=== PATIENT | female | born 1950 | race Caucasian/White ===

== ENCOUNTER 2018-05-02 05:18 | Day surgery (SDC) | payer MEDICARE, OTHER ==
[2018-04-30 15:31] LABS: BASOPHILS # (AUTO) 0.1 X10'3 (0-0.2); EOSINOPHILS # (AUTO) 0.1 X10'3 (0-0.9); EOSINOPHILS % (AUTO) 1.8 % (0-6); LYMPHOCYTES # (AUTO) 1.5 X10'3 (1.1-4.8); LYMPHOCYTES % (AUTO) 22.4 % (21-51); MEAN CORPUSCULAR HEMOGLOBIN 30.1 PG (27.0-31.0); MEAN CORPUSCULAR HGB CONC 33.2 % (33.0-36.5); MEAN CORPUSCULAR VOLUME 90.7 FL (78-98); MEAN PLATELET VOLUME 7.1 FL (7.4-10.4); MONOCYTES # (AUTO) 0.2 X10'3 (0-0.9); MONOCYTES % (AUTO) 3.6 % (2-12); NEUTROPHILS # (AUTO) 4.7 X10'3 (1.8-7.7); NEUTROPHILS % (AUTO) 71.2 % (42-75); PRE OP HEMATOCRIT 40.3 % (35.0-45.0); PRE OP HEMOGLOBIN 13.4 g/dL (12.0-16.0); PRE OP PLATELET COUNT 308 X10'3 (140-440); RED BLOOD COUNT 4.44 X10'6 (4.20-5.60); RED CELL DISTRIBUTION WIDTH 13.5 % (11.5-14.5)
[2018-04-30 15:35] LABS: PRE OP PROTIME 10.1 SECONDS (9.0-12.0)
[2018-04-30 15:42] LABS: ALBUMIN 3.7 G/DL (3.4-5.0); ALBUMIN/GLOBULIN RATIO 1.1 (1.1-1.5); ALKALINE PHOSPHATASE 114 IU/L (46-116); BLOOD UREA NITROGEN 23 MG/DL (7-18); BUN/CREATININE RATIO 25.8 (6.6-38.0); CALCIUM 9.9 MG/DL (8.5-10.1); CHLORIDE 106 MMOL/L (99-107); CREATININE 0.89 MG/DL (0.40-0.90); PRE OP ALT 27 U/L (30-65); PRE OP ANION GAP 9 (8-16); PRE OP AST 12 U/L (10-37); PRE OP BILIRUB, TOTAL 0.4 MG/DL (0.0-1.0); PRE OP GLUCOSE 94 MG/DL (70-104); PRE OP POTASSIUM 3.9 MMOL/L (3.4-5.1); PRE OP SODIUM 139 MMOL/L (135-145); TOTAL CARBON DIOXIDE 24.2 MMOL/L (24-32); TOTAL PROTEIN 7.1 G/DL (6.4-8.2); eGFR 63 ML/MIN
[2018-05-02] VITALS (26 sets, daily range): BP systolic 117–175; BP diastolic 51–92
[~2018-05-02] VITALS: Ht 160 cm; Wt 67.6 kg
[~2018-05-02 05:18] MED LIST: BISA-155 PO; EZET10TA14 PO; HYDR-3965 PO; LACT1CAP65 PO; MULT-1133 PO; POT INH; SENN-25 PO; TRAM50TA2 PO
[2018-05-02] MEDS ORDERED: gentamicin inj 275 MG in normal saline 100ml IV soln 93.125 ML IV ONE (05:30)
[2018-05-02] MEDS ORDERED: clindamycin-Cleocin 900mg/D5W 50 ML IV ONE (05:30)
[2018-05-02] MEDS ORDERED: famotidine 20mg tablet PO ONE (05:30)
[2018-05-02] MEDS ORDERED: LIDOcaine 1% (10mg/ml) 2ml vial ONE (05:43)
[2018-05-02] MEDS: ringers solution, lacted 1,000 ML IV SCH ×5 (06:15→17:06)
[2018-05-02] MEDS ORDERED: clindamycin phosphate 40gm vag cream ONE (06:50)
[2018-05-02] MEDS ORDERED: LIDOcaine 0.5% W/epiNEPHrine 1:200,000 50ml vial IJ ONE (06:50)
[2018-05-02] MEDS ORDERED: BUPIVAcaine/PF 2.5mg/ml (0.25%) 10ml vial ONE (06:51)
[2018-05-02] MEDS ORDERED: epiNEPHrine 1 mg/ml inj ONE (06:51)
[2018-05-02] MEDS ORDERED: neomy sulf/polymyxin B sulf. GU irrigation 1ml amp IR ONE (06:51)
[2018-05-02] MEDS ORDERED: sevoflurane 250ml liquid IH ONE (07:12)
[2018-05-02] MEDS ORDERED: acetaminophen 1000 MG/100ml vial IV ONE (07:12)
[2018-05-02] MEDS ORDERED: fentaNYL /PF 50mcg/ml 5ml ampule ONE (07:16)
[2018-05-02] MEDS ORDERED: midazolam 2 mg/2 ml injection ONE (07:16)
[2018-05-02] MEDS ORDERED: rocuronium 10mg/ml inj IV ONE (07:17)
[2018-05-02] MEDS ORDERED: LIDOcaine 2% (20mg/ml) 5ml vial ONE (07:17)
[2018-05-02] MEDS ORDERED: propofol inj 20 ML IV ONE (07:17)
[2018-05-02] MEDS ORDERED: ondansetron/PF 4mg/2ml inj IV PRN (08:15)
[2018-05-02] MEDS ORDERED: meperidine/PF 25mg/ml syringe IV PRN ×2 (08:15)
[2018-05-02] MEDS ORDERED: morphine 4 MG/ML inj SYRINge IV PRN ×3 (08:15→16:00)
[2018-05-02] MEDS ORDERED: ringers solution, lacted 1,000 ML IV SCH (08:15)
[2018-05-02] MEDS ORDERED: proCHLORperazine 10 MG/2 ml inj IV PRN (08:15)
[2018-05-02] MEDS ORDERED: dexamethasone sod phosphate 4mg/ml inj. ONE (08:21)
[2018-05-02] MEDS ORDERED: neostigmine methylsulfate 1 MG/ML 10ml vial ONE (08:21)
[2018-05-02] MEDS ORDERED: glycopyrrolate 0.2mg/ml inj ONE (08:21)
[2018-05-02] MEDS ORDERED: ondansetron/PF 4mg/2ml inj ONE (08:21)
[2018-05-02] MEDS ORDERED: meperidine/PF 50mg/ml syringe ONE (09:49)
[2018-05-02] MEDS ORDERED: sennosides 8.6mg tablet PO PRN (10:50)
[2018-05-02] MEDS ORDERED: traMADol 50MG tablet PO PRN (10:50)
[2018-05-02] MEDS: meperidine/PF 25mg/ml syringe IV PRN ×3 (11:46→14:14)
[2018-05-02] MEDS: ondansetron/PF 4mg/2ml inj IV PRN ×2 (14:12→20:27)
[2018-05-02] MEDS: proCHLORperazine 10 MG/2 ml inj IV PRN ×2 (16:21→22:49)
[2018-05-02] MEDS: morphine 4 MG/ML inj SYRINge IV PRN ×2 (16:22→20:27)
[2018-05-02] MEDS: docusate sod 250mg capsule PO SCH (19:20)
[2018-05-02] MEDS: ezetimibe 10mg tablet PO SCH (20:27)
[2018-05-02] MEDS: bisacodyl 5mg tablet.DR PO SCH (20:36)
[2018-05-02] MEDS ORDERED: HYDROcodone/acetaminophen 5mg/325mg tablet PO SCH (21:00)
[2018-05-02] MEDS: HYDROcodone/acetaminophen 10/325mg tab PO PRN (22:49)
[2018-05-03] VITALS: BP_SYST 145; BP_SYST 171; BP_DIAS 45; BP_DIAS 49
[2018-05-03] MEDS: ringers solution, lacted 1,000 ML IV SCH ×2 (02:09→14:38)
[2018-05-03] MEDS: morphine 4 MG/ML inj SYRINge IV PRN ×2 (04:51→09:43)
[2018-05-03 07:30] VITALS: BP 142/45
[2018-05-03] MEDS: lactobacillus rhamnosus 10,000 MMU CELLS/CAPSULE PO SCH (08:24)
[2018-05-03] MEDS: docusate sod 250mg capsule PO SCH ×2 (08:24→19:47)
[2018-05-03] MEDS: multivitamins, therapeutics tablet PO SCH (08:24)
[2018-05-03 09:42] LABS: BASOPHILS % (AUTO) 0.1 % (0-1); EOSINOPHILS # (AUTO) 0.2 X10'3 (0-0.9); EOSINOPHILS % (AUTO) 1.1 % (0-6); HEMATOCRIT 39.2 % (35.0-45.0); HEMOGLOBIN 13.7 g/dl (12.0-16.0); LYMPHOCYTES # (AUTO) 1.3 X10'3 (1.1-4.8); LYMPHOCYTES % (AUTO) 8.9 % (21-51); MEAN CORPUSCULAR HEMOGLOBIN 31.2 PG (27.0-31.0); MEAN CORPUSCULAR HGB CONC 34.9 % (33.0-36.5); MEAN CORPUSCULAR VOLUME 89.6 FL (78-98); MEAN PLATELET VOLUME 7.5 FL (7.4-10.4); MONOCYTES # (AUTO) 0.9 X10'3 (0-0.9); MONOCYTES % (AUTO) 6.1 % (2-12); NEUTROPHILS # (AUTO) 11.8 X10'3 (1.8-7.7); NEUTROPHILS % (AUTO) 83.8 % (42-75); PLATELET COUNT 323 X10'3 (140-440); RED BLOOD COUNT 4.38 X10'6 (4.20-5.60); RED CELL DISTRIBUTION WIDTH 14.4 % (11.5-14.5)
[2018-05-03 12:00] VITALS: BP 174/60
[2018-05-03] MEDS: HYDROcodone/acetaminophen 10/325mg tab PO PRN ×2 (14:42→22:45)
[2018-05-03 18:00] VITALS: BP 163/56
[2018-05-03] MEDS: bisacodyl 5mg tablet.DR PO SCH (20:48)
[2018-05-03] MEDS: ezetimibe 10mg tablet PO SCH (20:48)
[2018-05-03] MEDS: ondansetron/PF 4mg/2ml inj IV PRN (21:50)
[2018-05-04] VITALS: BP 154/65
[2018-05-04] MEDS: ringers solution, lacted 1,000 ML IV SCH ×2 (04:00→08:40)
[2018-05-04] MEDS: HYDROcodone/acetaminophen 10/325mg tab PO PRN ×2 (04:16→10:43)
[2018-05-04 08:00] VITALS: BP 155/57
[2018-05-04] MEDS: multivitamins, therapeutics tablet PO SCH (08:00)
[2018-05-04] MEDS: lactobacillus rhamnosus 10,000 MMU CELLS/CAPSULE PO SCH (08:00)
[2018-05-04] MEDS: docusate sod 250mg capsule PO SCH (08:00)
== END 2018-05-04 13:31 | disposition home or self-care (01) ==
LOC: PAS 05:18 → SUR 3N 13:29 → PAS 05-04 13:31
PROVIDERS: ATTEND Specialist
DX: N72 Inflammatory disease of cervix uteri (principal); N81.2 Incomplete uterovaginal prolapse; N80.0 Endometriosis of uterus; N81.4 Uterovaginal prolapse, unspecified; N81.6 Rectocele; M81.0 Age-related osteoporosis without current pathological fracture; F17.210 Nicotine dependence, cigarettes, uncomplicated; Z90.49 Acquired absence of other specified parts of digestive tract; G89.29 Other chronic pain; Z88.5 Allergy status to narcotic agent; Z88.6 Allergy status to analgesic agent; Z85.3 Personal history of malignant neoplasm of breast; Z98.51 Tubal ligation status; Z79.891 Long term (current) use of opiate analgesic; Z88.0 Allergy status to penicillin; Z88.4 Allergy status to anesthetic agent; Z79.899 Other long term (current) drug therapy; Z98.890 Other specified postprocedural states; Z88.8 Allergy status to other drugs, medicaments and biological substances; Z80.1 Family history of malignant neoplasm of trachea, bronchus and lung
CPT/HCPCS: 36415; 57220; 57260; 58262; 80053; 85025; 85610; 85730; 86885; 86900; 86901; 87070; 93005; A4344; A6253; A6402; J0131; J0171; J0780; J1100; J1580; J2001; J2175; J2250; J2270; J2405; J2704; J2710; J3010; J3490; J7030; J7120; 88307; A7000

== ENCOUNTER 2024-06-16 12:18 | Emergency (ER) | payer MEDICARE ==
[~2024-06-16] VITALS: Ht 160 cm; Wt 61.9 kg
[~2024-06-16 12:18] MED LIST changes: -EZET10TA14 PO; +EZET10TA6 PO
[2024-06-16 14:07] LABS: BASOPHILS % (AUTO) 0.1 % (0-1); EOSINOPHILS # (AUTO) 0.7 X10'3 (0-0.9); HEMATOCRIT 37.1 % (35.0-45.0); HEMOGLOBIN 12.2 g/dl (12.0-16.0); LYMPHOCYTES # (AUTO) 0.6 X10'3 (1.1-4.8); MEAN CORPUSCULAR HEMOGLOBIN 30.3 PG (27.0-31.0); MEAN CORPUSCULAR VOLUME 91.9 FL (78-98); MEAN PLATELET VOLUME 7.4 FL (7.4-10.4); MONOCYTES # (AUTO) 0.5 X10'3 (0-0.9); MONOCYTES % (AUTO) 5.3 % (2-12); NEUTROPHILS % (AUTO) 81.6 % (42-75); PLATELET COUNT 397 X10'3 (140-440); RED BLOOD COUNT 4.04 X10'6 (4.20-5.60); WHITE BLOOD COUNT 9.8 X10'3 (4.5-11.0)
[2024-06-16] MEDS: normal saline 1000ml 1,000 ML IV ONE ×2 (14:13→15:37)
[2024-06-16 14:30] LABS: BILIRUBIN,URINE SMALL (Neg); CLARITY,URINE CLEAR (Clear); COLOR,URINE YELLOW (Yellow); GLUCOSE, URINE NEGATIVE (Neg); KETONES,URINE NEGATIVE (Neg); LEUKOCYTE ESTERASE ,URINE NEGATIVE (Neg); OCCULT BLOOD,URINE NEGATIVE (Neg); PH,URINE 5.5 (4.8-8.0); PROTEIN,URINE 30 mg/dl (Neg)
[2024-06-16 14:33] LABS: UA COLLECTION TYPE CLN CATCH MIDSTREAM
[2024-06-16 14:34] LABS: NITRITES, URINE NEGATIVE (Neg)
[2024-06-16 14:38] LABS: ALANINE AMINOTRANSFERASE 58 U/L (12-78); ALBUMIN 2.8 G/DL (3.4-5.0); ALBUMIN/GLOBULIN RATIO 0.7 (1.1-1.5); ALKALINE PHOSPHATASE 55 IU/L (46-116); ANION GAP 14 (8-16); ASPARTATE AMINO TRANSFERASE 28 U/L (10-37); BILIRUBIN,TOTAL 0.3 MG/DL (0.1-1.0); BLOOD UREA NITROGEN 45 MG/DL (7-18); BUN/CREATININE RATIO 22.4 (10.0-20.0); CALCIUM 10.6 MG/DL (8.5-10.1); CHLORIDE 106 MMOL/L (99-107); CREATININE 2.01 MG/DL (0.40-0.90); GLUCOSE 122 MG/DL (70-104); MAGNESIUM 2.4 MG/DL (1.5-2.4); POTASSIUM 3.2 MMOL/L (3.5-5.1); SODIUM 140 MMOL/L (135-145); TOTAL CARBON DIOXIDE 20.1 MMOL/L (24-32); TOTAL PROTEIN 6.9 G/DL (6.4-8.2); eCRCL 21 ML/MIN; eGFR 24 ML/MIN
[2024-06-16 14:43] LABS: CELLULAR CAST 0-4 /LPF (NEGATIVE); RBC,URINE NONE SEEN /HPF (0-2); STARCH,URINE FEW /HPF (NEGATIVE); WBC,URINE 0-4 /HPF (0-4)
[2024-06-16 14:44] LABS: BACTERIA,URINE NONE SEEN /HPF (Neg); MUCUS STRANDS NONE SEEN /LPF (Neg); SQUAMOUS EPITHELIAL CELL,UR FEW /LPF (FEW)
[2024-06-16 14:46] LABS: RENAL CELLS, URINE FEW /HPF
[2024-06-16] MEDS: potassium CL 10mEq/100ml bag 100 ML IV SCH (15:37)
[2024-06-16 17:40] LABS: ALBUMIN 2.5 G/DL (3.4-5.0); ANION GAP 12 (8-16); BLOOD UREA NITROGEN 40 MG/DL (7-18); BUN/CREATININE RATIO 24.2 (10.0-20.0); CALCIUM 9.4 MG/DL (8.5-10.1); CHLORIDE 110 MMOL/L (99-107); CREATININE 1.65 MG/DL (0.40-0.90); GLUCOSE 92 MG/DL (70-104); POTASSIUM 3.5 MMOL/L (3.5-5.1); SODIUM 142 MMOL/L (135-145); eCRCL 25 ML/MIN; eGFR 30 ML/MIN
[2024-06-16] MEDS ORDERED: POTA-192 PO (18:04)
[2024-06-16] MEDS ORDERED: ONDA-243 PO (18:04)
[2024-06-16 18:24] VITALS: BP 185/74; PULSE 86; RESP 15; TEMP 97.9; O2SAT 99
== END 2024-06-16 18:28 | disposition home or self-care (01) ==
LOC: ER 12:19
DX: E86.0 Dehydration (principal); R19.7 Diarrhea, unspecified; I95.9 Hypotension, unspecified; Z88.8 Allergy status to other drugs, medicaments and biological substances; Z88.1 Allergy status to other antibiotic agents; Z88.0 Allergy status to penicillin; Z79.899 Other long term (current) drug therapy
CPT/HCPCS: 36415; 80048; 80053; 81001; 83735; 85025; 96361; 96365; 99285; J3480; J7030